=== PATIENT | female | born 1980 | race Caucasian/White ===

== ENCOUNTER 2018-02-16 07:17 | Day surgery (SDC) | payer OTHER ==
[2018-02-16] MEDS ORDERED: Propofol 10 mg/ml Inj (20 ML) ONE (10:02)
--- NOTE | 2018-02-16 10:14 | CP.SDSHP ---
Same Day Surgery H & P - History Proposed Procedure: colonscopy Pre-Op Diagnosis: SEE NOTES - Previous Medical/Surgical History Misc: Other Pain: 4.Moderate Pain - Allergies Allergies: Allergies No Known Allergies Allergy (Verified 02/16/18 08:04) - Physical Exam General Appearance: N Vital Signs: Vital Signs 02/16/18 08:15 Temperature 97.1 F L Pulse Rate 80 Respiratory 20 Rate Blood Pressure 127/80 O2 Sat by Pulse 99 Oximetry Mental Status: Alert & Oriented x3 Neuro: WNL Heart: WNL Lungs: WNL GI: Other - {Optional Preform as Required} Breast: WNL Abdomen: Other Rectal: Other Integument: WNL : WNL Ortho: WNL ENT: WNL - Impression Pt. Evaluated Today:Candidate for Anesthesia & Procedure: Yes - Date & Time Time: 10:14 Short Stay Discharge - Short Stay Discharge Admitting Diagnosis/Reason for Visit: HEMORRHAGE OF ANUS AND RECTUM Disposition: HOME/ ROUTINE
[2018-02-16] MEDS ORDERED: Belladonna-Phenobarbital PO STA (10:15)
[2018-02-16 10:40] VITALS: TEMP 97.8; O2SAT 100
[2018-02-16 11:41] VITALS: BP 114/72; PULSE 69; RESP 13
== END 2018-02-16 11:39 | disposition home or self-care (01) ==
LOC: C.ENDO 07:17
PROVIDERS: ATTEND Specialist
DX: K64.8 Other hemorrhoids (principal); K64.4 Residual hemorrhoidal skin tags; K60.2 Anal fissure, unspecified
CPT/HCPCS: 45378; 84703; J2001; J2704